=== PATIENT | male | born 1975 | race Caucasian/White ===

== ENCOUNTER 2025-05-07 11:15 | Emergency (ER) | payer BC, SELFPAY ==
[2025-05-07 11:23] VITALS: BP 125/73; PULSE 104; RESP 20; TEMP 36.4; O2SAT 100
[2025-05-07 11:32] VITALS: O2SAT 100
[2025-05-07 11:39] VITALS: BP 125/83; PULSE 69; RESP 14; O2SAT 99
--- NOTE | 2025-05-07 11:51 | ED_ITS ---
HPI - Allergic Reaction General Chief complaint: Allergic Reaction Stated complaint: allergic rxn Time Seen by Provider: 05/07/25 11:41 History of Present Illness HPI narrative: Pt awoke with hives to trunk this morning and some heartburn. Pt denies respiratory symptoms or tongue swelling. Pt has a history of this and does not know cuase. Pt took benadryl and gave himself epipen prior to arrival. Related Data Allergies Allergy/AdvReac Type Severity Reaction Status Date / Time No Known Allergies Allergy Verified 05/07/25 11:25 Review of Systems Review of Systems: All systems reviewed & are unremarkable except as noted in HPI and below Exam Const: General: healthy appearing and no acute distress Nutritional Appearance: well nourished Orientation/consciousness: patient oriented x3 Limitations: no limitations HENMT: Head: normal to inspection Ears: external ears normal Face/Nose/Sinus: Normal external nose present Mouth: Yes Normal oral and palatal mucosa present Eyes: Pupils: Equal, round and reactive pupils present EOM: EOMs intact bilaterally Chest: Chest palpation & inspection: normal inspection of the chest Resp: Effort & Inspection: normal respiratory effort Auscultation: clear to auscultation bilaterally Cardio: Rate: regular rate Rhythm: regular rhythm GI: GI Palp: Yes Soft to palpation and No Tenderness to palpation present (GI) Auscultation: normal bowel sounds Skin: Rashes: no rashes (hives to trunk) Neuro: General: patient oriented x3, moves all extremities, no meningeal signs and no focal motor deficits Speech: normal speech Extrem: General: normal to inspection and no clubbing, cyanosis or edema Psych: Mental Status: mental status grossly normal Affect: normal affect Attitude: cooperative Course Vital Signs Vital signs: Vital Signs Temperature 97.6 F 05/07/25 11:23 Pulse Rate 104 H 05/07/25 11:23 Respiratory Rate 20 05/07/25 11:23 Blood Pressure 125/73 05/07/25 11:23 Pulse Oximetry 100 05/07/25 11:23 Oxygen Delivery Room Air 05/07/25 11:23 Temperature 97.6 F 05/07/25 11:23 Pulse Rate 55 L 05/07/25 13:11 Respiratory Rate 21 H 05/07/25 13:11 Blood Pressure 116/76 05/07/25 13:11 Pulse Oximetry 98 05/07/25 13:11 Oxygen Delivery Room Air 05/07/25 11:32 MDM - Allergic Reaction MDM Narrative Medical decision making narrative: will give benadryl and solumedrol. pt feels better rash is resolved. home on prednisone Differential Diagnosis Differential diagnosis: Likely anaphylaxis, allergic reaction, angioedema, contact dermatitis and urticaria Discharge Plan Discharge Clinical Impression: Urticaria Patient Disposition: Home Condition: Improved Instructions: Antibiotic Form, Urticaria (ED) Patient Language: [place] Prescriptions: New prednisone 50 mg tablet 50 mg PO DAILY Qty: 5 0RF epinephrine [EpiPen] 0.3 mg/0.3 mL auto-injector 0.3 mg IM ONCE Qty: 1 1RF Rx Instructions: as a single dose; may repeat once Follow-up/Referrals: Kerline,Zafar Burns MD [Primary Care Provider, Unknown]
[2025-05-07] MEDS: FAMOTIDINE 20 MG/2 ML VIAL IV PUSH (12:09)
[2025-05-07 13:11] VITALS: BP 116/76; PULSE 55; RESP 21; O2SAT 98
== END 2025-05-07 13:19 | disposition home or self-care (01) ==
PROVIDERS: Emergency Provider Emergency Medicine; PCP Family Medicine
DX: L50.9 Urticaria, unspecified (principal); R12 Heartburn
CPT/HCPCS: 96374; 96375; 99284; J1200; J2919